=== PATIENT | male | born 1990 | race Caucasian/White ===

== ENCOUNTER 2016-10-04 05:14 | Emergency (ER) | payer SELFPAY ==
[2016-10-04] MEDS ORDERED: KETOROLAC 60 MG/2 ML VIAL IM STA (05:23)
[2016-10-04 05:35] LABS: PH,URINE 7.5 PH (5.0-7.5)
[2016-10-04] MEDS ORDERED: KETOROLAC 60 MG/2 ML VIAL ONE (05:35)
--- NOTE | 2016-10-04 05:39 | ED Physician Documentation ---
PD HPI ABD PAIN - Stated complaint Stated Complaint: ABD PX - History obtained from History obtained from: Patient - History of Present Illness Timing - onset: Today Timing - details: Gradual onset, Still present Quality: Aching, Sharp Location: LUQ Radiation: Left flank Worsened by: Palpation Associated symptoms: Nausea. No: Fever, Vomiting, Hematemesis, Diarrhea, Constipation Similar symptoms before: Work up / diagnostics, Treatment Recently seen: Not recently seen - Additional information Additional information: Patient is a 26 year old male with a history of kidney stones who is presenting to the emergency department for left lower quadrant pain and dark urine. Patient states that the pain woke him up from sleeping and his urine is getting progressively darker. Review of Systems Constitutional: denies: Fever, Chills Eyes: denies: Loss of vision, Photophobia Ears: denies: Ear pain, Drainage/discharge Nose: denies: Congestion Throat: denies: Sore throat Cardiac: denies: Chest pain / pressure Respiratory: denies: Cough GI: reports: Abdominal Pain, Nausea. denies: Vomiting, Constipation, Diarrhea : reports: Hematuria Skin: denies: Rash, Lesions Musculoskeletal: reports: Back pain. denies: Extremity pain Neurologic: denies: Generalized weakness, Focal weakness Immunocompromised: denies: Immunocompromised PD PAST MEDICAL HISTORY - Present Medications Home Medications: Ambulatory Orders Medication Instructions Recorded Confirmed Ondansetron Odt [Zofran] 4 mg TL Q6H PRN #14 tablet 10/04/16 Oxycodone HCl/Acetaminophen 1 - 2 each PO Q8H PRN #6 tablet 10/04/16 [Percocet 5-325 mg Tablet] Tamsulosin [Flomax] 0.4 mg PO DAILY #10 capsule 10/04/16 - Allergies Allergies/Adverse Reactions: Allergies Allergy/AdvReac Type Severity Reaction Status Date / Time lorazepam [From Ativan] Allergy Cramps Verified 10/04/16 05:28 PD ED PE NORMAL - Vitals Vital signs reviewed: Yes - General General: Alert and oriented X 3, Well developed/nourished - HEENT HEENT: Atraumatic, PERRL - Neck Neck: Supple, no meningeal sign - Cardiac Cardiac: RRR, No murmur - Respiratory Respiratory: No respiratory distress - Derm Derm: Normal color, Warm and dry, No rash - Extremities Extremities: No deformity, Normal ROM s pain, No edema - Neuro Neuro: Alert and oriented X 3, No motor deficit - Psych Psych: Normal mood, Normal affect PD ED PE EXPANDED - General General: Alert, In Pain - Abdomen Abdomen: Tender to palpation, LLQ Results - Vitals Vitals: Vital Signs - 24 hr 10/04/16 05:18 Temperature 36.7 C Heart Rate 82 Respiratory 16 Rate Blood Pressure 158/93 H O2 Saturation 97 Oxygen O2 Source Room air - Labs Labs: Laboratory Tests 10/04/16 05:21 Urine Color RED/BLOODY Urine Clarity HAZY Urine pH 7.5 Ur Specific [place] 1.015 Urine Protein 100 H Urine Glucose (UA) NEGATIVE Urine Ketones NEGATIVE Urine Occult Blood LARGE H Urine Nitrite NEGATIVE Urine Bilirubin NEGATIVE Urine Urobilinogen 0.2 (NORMAL) Ur Leukocyte Esterase NEGATIVE Urine RBC TNTC H Urine WBC 0-3 Ur Squamous Epith Cells NONE SEEN Urine Bacteria None Seen Ur Microscopic Review INDICATED Urine Culture Comments NOT INDICATED - Rads (name of study) ct abd pelvis Radiology: EMP read contemporaneously (left sided stone 4.9mm, mild hydro) PD MEDICAL DECISION MAKING - ED course Complexity details: reviewed results, re-evaluated patient, considered differential, d/w patient ED course: Patient was seen and examined at bedside. urine was collected and imaging was ordered. patient was treated with toradol and zofran. when patient returned the results were reviewed. Patient was found to have a left sided stone that would likely pass and had no sign of infection. patient required no further inpatient work up and was stable for discharge with outpatient follow up. Departure - Departure Disposition: 01 Home, Self Care Clinical Impression: Kidney stone on left side Condition: Good Instructions: ED Stone Renal W Colic Follow-Up: primary, care provider [Other] - As Needed Prescriptions: Tamsulosin [Flomax] 0.4 mg PO DAILY #10 capsule Oxycodone HCl/Acetaminophen [Percocet 5-325 mg Tablet] 1 - 2 each PO Q8H PRN #6 tablet PRN Reason: pain Ondansetron Odt [Zofran] 4 mg TL Q6H PRN #14 tablet PRN Reason: Nausea / Vomiting Comments: Your symptoms today are being caused by a kidney stone. it is 5mm so it has a 90% chance of passing on its own. It will be painful as it continues to pass so you should expect to be in pain periodically. You should make sure that you stay very well hydrated. You should take a flomax daily. You should take motrin 600mg or tyelnol 1000mg for pain, and can take a percocet for breakthrough pain. You should follow up with your pmd if stones become more frequent. You should return to the emergency department for fevers, chills, uncontrollable vomiting or new or worsening symptoms. Forms: Activity restrictions
[2016-10-04 05:41] LABS: BILIRUBIN,URINE NEGATIVE (NEGATIVE); UA w/ MICROSCOPIC CHARGE YES
[2016-10-04 05:42] LABS: UR CULTURE IF IND NOT INDICATED; WBC,URINE 0-3 /HPF (0-3)
[2016-10-04] MEDS ORDERED: ONDANSETRON ODT 4 MG TABLET TL STA (05:44)
[2016-10-04] MEDS ORDERED: TAMSULOSIN 0.4 MG CAPSULE PO STA (05:44)
[2016-10-04] MEDS ORDERED: TAMSULOSIN 0.4 MG CAPSULE ONE (05:52)
[2016-10-04] MEDS ORDERED: ONDANSETRON ODT 4 MG TABLET ONE (05:52)
[2016-10-04] MEDS ORDERED: oxyCODONE/ACET 5/325 Prepack 4 PO STA (05:54)
--- NOTE | 2016-10-04 05:54 | CT Preliminary Report ---
Exam: CT Abdomen/Pelvis W/O IMPRESSION: 1. Moderately obstructing 5 x 4 mm stone in the proximal left ureter. 2. No other urolithiasis seen. [facility] SITE ID: [id number]
--- NOTE | 2016-10-04 05:56 | CT Report ---
EXAM: CT ABDOMEN AND PELVIS (CT KUB) EXAM DATE: 10/04/2016 05:41 AM. CLINICAL HISTORY: Left lower quadrant pain, hx of stones. COMPARISONS: None. TECHNIQUE: Routine axial helical CT imaging was performed through the abdomen and pelvis without IV c ontrast. Reconstructions: Coronal and sagittal. In accordance with CT protocol optimization, one or more of the following dose reduction techniques w ere utilized for this exam: automated exposure control, adjustment of mA and/or KV based on patient s ize, or use of iterative reconstructive technique. FINDINGS: Lung Bases: Unremarkable. Right Kidney/Ureter: No stones, hydronephrosis, or hydroureter. No perinephric fat stranding. Left Kidney/Ureter: No stones are seen in the kidney. Moderately obstructing 5 x 4 mm stone in the pr oximal ureter. Other Solid Organs: Noncontrast images of the solid organs are grossly unremarkable. Gallbladder/Bile Ducts: Unremarkable. Peritoneal Cavity: No free fluid, free air or ariadna adenopathy. Bowel is grossly unremarkable. Pelvic Organs: No bladder stones or wall thickening. Noncontrast images of the visualized pelvic orga ns are unremarkable. Vasculature: Unremarkable. Other: None. IMPRESSION: 1. Moderately obstructing 5 x 4 mm stone in the proximal left ureter. 2. No other urolithiasis seen. [facility] Referring Provider Line: [phone] SITE ID: [id number]
[2016-10-04] MEDS ORDERED: oxyCODONE/ACET 5/325 Prepack 4 PO ONE (06:05)
[2016-10-04 06:13] VITALS: BP 155/97
== END 2016-10-04 06:18 | disposition home or self-care (01) ==
LOC: ED 05:14
DX: N20.0 Calculus of kidney (principal)
CPT/HCPCS: 74176; 81001; 96372; 99283; 99284; A9270; Q0162; 81003; 87086